=== PATIENT | female | born 2005 | race African-American/Black ===

== ENCOUNTER 2025-02-12 11:45 | Inpatient (IN) | payer OTHER, SELFPAY ==
[2025-02-12] VITALS (81 sets, daily range): BP systolic 84–212; BP diastolic 35–171; PULSE 51–187; RESP 16–20; TEMP 36–37.1; O2SAT 80–100; BMI 29.2
--- NOTE | 2025-02-12 12:11 | WPDOBADMIT ---
Obstetrics - Admit Note Admission Note: record reviewed. No pertinent additions to the history and/or any subsequent changes in the physical findings that are not consistent with the expected course of the were found. Additions to the history and/or subsequent changes in the physical findings follow. admit in active labor, anticipate vaginal delivery
[2025-02-12] MEDS: LACTATED RINGERS 1,000 ML 125 ML IV CONT ×2 (12:34→13:53)
[2025-02-12 12:45] LABS: Hematocrit 36.1 % (37.0-47.0); Hemoglobin 11.5 g/dL (12.0-15.0); Immature Granulocyte Percent A 0.4 % (0-0.5); Lymphocytes Absolute Auto 2.33 K/mm3 (0.9-3.2); Mean Corpuscular HGB Conc 31.9 g/dl (32-36); Mean Corpuscular Hemoglobin 29.0 pg (26-34); Mean Corpuscular Volume 91.2 fl (80-100); Nucleated Red Blood Cells Absolute Auto 0.000 K/mm3 (0.0-0.012); Nucleated Red Blood Cells Perc 0.0 % (0.0-0.2); Platelet Count Result 221 k/mm3 (150-375); Red Blood Count 3.96 M/mm3 (4.2-5.4); White Blood Count 10.5 K/mm3 (4.5-10.0)
[2025-02-12 13:26] LABS: Syphilis IgG/IgM Antibody Non-Reactive (Nonreactive)
[2025-02-12] MEDS: OXYTOCIN 30 UNITS/NS 500 ML 30 UNITS/500 ML BAG 999 UNITS IV CONT (14:38)
--- NOTE | 2025-02-12 14:43 | PM.OBPRVD ---
OB - Vaginal Delivery Note Procedure Delivery date: 02/12/25 Delivery augmentation: Rupture of Membranes Delivery monitor: External FHT and External Uterine Route of delivery: Laceration Description: None Specimen: No Quantitative Blood Loss (ml): 150 Anesthesia type: Epidural Disposition: Floor Baby Date of : 02/12/25 Time of : 14:34 Gestational Age by Date: 38 Infant gender: Female presentation: vertex position: Left Occiput Anterior Placenta delivery description: Spontaneous and Expressed Cord Vessel Description: 3 Vessels score one minute: 8 score five minutes: 9
[2025-02-12] MEDS: IBUPROFEN 600 MG TABLET PO (15:15)
[2025-02-12] MEDS: OXYTOCIN 30 UNITS/NS 500 ML 30 UNITS/500 ML BAG 125 UNITS IV CONT (15:19)
[2025-02-12] MEDS: WITCH HAZEL 40 PADS 1 PAD TOPICAL (17:24)
[2025-02-12] MEDS: BENZOCAINE 20% AER SPR (*SP) 56 GM CAN 1 SPRAY TOPICAL (17:24)
[2025-02-12] MEDS: ACETAMINOPHEN 325 MG TABLET 650 MG PO (18:52)
--- NOTE | 2025-02-12 20:26 | LDADM ---
This patient, Cinthia Snyder, was admitted to OB 1st Floor Room 105 on 02/12/25 at 11:45. Plans for labor, pain management and were discussed with patient. Patient/family oriented to hospital policies and general routines including ID bracelet, bed and alarms, visiting hours, pain management, procedures, bathroom and other care routines, personal items, smoking policy, room service/diet and guest tray routines, infant security routines, and visiting hours. Patient/Family are encouraged to report perceived risks to care and to ask questions if they do not understand what they are told or what they should do. See OBIX for further documentation.
[2025-02-13 05:09] LABS: Hematocrit 30.9 % (37.0-47.0); Hemoglobin 10.0 g/dL (12.0-15.0)
[2025-02-13 07:54] VITALS: BP 120/74; PULSE 92; RESP 16; TEMP 36.7; O2SAT 97
[2025-02-13] MEDS: MULTIVIT/MIN/PREN/FOL AC/IRON TABLET 1 TAB PO (08:58)
[2025-02-13] MEDS: DOCUSATE SODIUM 100 MG CAPSULE PO (08:58)
--- NOTE | 2025-02-13 13:07 | P.PNOB_ITS ---
OB - PN: Subj Subjective Date/time seen: 02/13/25 13:07 Patient comments: no complaints, pain well controlled, incisional pain, tolerating diet and flatus present OB - PN: Obj Data Labs 02/13/25 04:32 Labs: Laboratory Results - last 24 hr 02/12/25 02/13/25 12:37 04:32 Hgb 10.0 L Hct 30.9 L Syphilis IgG/IgM Ab Non-reactive Blood Type O Positive Antibody Screen Negative OB - PN A/P Plan day: 1 Plan: routine care Comments: No problems, routine care Time Spent With Patient Time: Total time spent is greater than 50% in coordination of care (as documented) at patient's floor/unit and/or counseling patient: Exam 2 Const: General: comfortable, no acute distress and alert Resp: Effort & Inspection: normal respiratory effort Auscultation: no crackles, no rales and no rhonchi Cardio: Rate: regular rate Heart sounds: no click, no murmurs and no rubs GI: Inspection: non-distended GI Palp: No Tenderness to palpation present (GI) Auscultation: normal bowel sounds Other: Incision - CDI Extrem: General: normal to inspection, no pedal edema and no calf tenderness
--- NOTE | 2025-02-13 13:08 | PM.OBDSVD ---
DS: Admitting Diagnosis Discharge Date 02/13/2025 Admitting Diagnosis Term DS: Discharge Diagnosis Discharge Diagnosis (1) Term delivered: Code(s): O80 - Encounter for full-term uncomplicated delivery Status: Acute OB - DS: Summary OB Procedures : None OB Procedures Intrapartum: Spontaneous Vag Delivery OB Procedures: : None Peripartum Data Laceration Description: None Time Spent with Patient Time attestation: Total time spent providing and/or coordinating discharge services: DS: Data Data Completed and Pending Labs on day of discharge: Labs from last 24 hours 02/13/25 02/12/25 04:32 12:37 Hgb 10.0 L Hct 30.9 L Syphilis IgG/IgM Ab Non-reactive Blood Type O Positive Antibody Screen Negative Discharge Plan Discharge Consulting providers: Destiny Orellana Discharging Clinician: Abdullahi Curtis Patient Disposition: Home Activity: pelvic rest Diet: regular Patient Instructions: Antibiotic Form Patient Language: Pashto Stand Alone Forms: General Discharge Information Follow-up/Referrals: Abdullahi Curtis MD [Physician, [employer]SULTANT] Discharge Medications: Continued WesTab Plus 27 mg iron- 1 mg tablet 1 tablet PO DAILY Date of admission: 02/12/25 11:45 Primary Care Provider: UNKNOWN,DOCTOR Admitting Provider: Abdullahi Curtis Attending physician on admission: Abdullahi Curtis Condition: Stable
== END 2025-02-13 22:23 | disposition home or self-care (01) | DRG 560 ==
LOC: ANHLDR 16:28 → ANHOB2 19:13
PROVIDERS: Advanced Practice Midwife; Admitting Provider Obstetrics & Gynecology; Visit Provider Obstetrics & Gynecology
DX: O80 Encounter for full-term uncomplicated delivery (principal); Z37.0 Single live birth; Z3A.38 38 weeks gestation of pregnancy
CPT/HCPCS: 36415; 85014; 85018; 85025; 86593; 86850; 86900; 86901; A9270; J2590; J2795; J7120